=== PATIENT | male | born 1960 | race Caucasian/White ===

== ENCOUNTER 2024-06-07 19:01 | Emergency (ER) | payer OTHER ==
[~2024-06-07 19:01] MED LIST: Iopamidol-370 76% 500 ML MDV (1 ML CHARGE) ONE
[2024-06-07] MEDS ORDERED: Acetaminophen 500 MG TAB ONE (21:24)
[2024-06-07] MEDS ORDERED: methylPREDNISolone Sod Succ/PF 125 MG/2 ML VIAL ONE (21:24)
[2024-06-07 21:25] LABS: #Basophils 0.03 10x3/uL (0.0-0.2); %Basophils 0.4 % (0.0-1.0); %Eosinophils 1.2 % (0.0-10.0); %Lymphocytes 34.5 % (21.0-51.0); %Monocytes 7.7 % (0.0-10.0); %Neutrophils 56.1 % (42.0-75.0); Hematocrit 41.8 % (42.0-52.0); Mean Corpuscular HGB CONC 33.5 g/dL (32.0-36.0); Mean Corpuscular Hemoglobin 30.7 pg (27.0-31.0); Mean Corpuscular Volume 91.7 fL (78.0-98.0); Mean Platelet Volume 10.1 fL (7.4-10.4); Platelet Count 264 10x3/uL (130-400); RBC Distribution Width 13.2 % (11.5-14.5); Red Blood Cell (RBC) Count 4.56 mill/uL (4.70-6.10)
[2024-06-07 21:41] LABS: INR-International Normal Ratio 1.1; PTT 28.1 sec (22.9-36.1); Prothrombin Time 13.8 sec (12.0-14.7)
[2024-06-07 21:43] LABS: Lactic Acid 0.63 mmol/L (0.5-2.2)
[2024-06-07 21:48] LABS: ALT (SGPT) 12 U/L (8-55); AST (SGOT) 13 U/L (5-34); Albumin 3.6 g/dL (3.4-4.8); Alkaline Phosphatase 74 U/L (40-110); Anion Gap 12 mmol/L (10-20); BUN (Urea Nitrogen) 14 mg/dL (8.4-25.7); Bilirubin, Total 0.2 mg/dL (0.2-1.2); Calc. Creatinine Clearance 0 mL/min (70-130); Calcium 8.8 mg/dL (7.8-10.44); Carbon Dioxide 24 mmol/L (23-31); Chloride 109 mmol/L (98-107); Estimated GFR 81; Glucose 82 mg/dL (80-115); Lipase 26 U/L (8-78); Potassium 4.3 mmol/L (3.5-5.1); Protein, Total 6.6 g/dL (5.8-8.1); Sodium 141 mmol/L (136-145)
[2024-06-07 21:52] LABS: Troponin I 0.013 ng/mL (< 0.028)
[2024-06-07] MEDS ORDERED: fentaNYL 50 mcg/mL 1 mL Vial ONE ×2 (21:52→22:33)
[2024-06-07] MEDS ORDERED: Labetalol HCl 100 MG/20 ML VIAL ONE (21:52)
[2024-06-07] MEDS ORDERED: Esmolol 2,500 MG/250 ML 250 ML ONE (21:55)
[2024-06-07] MEDS ORDERED: Pantoprazole 40 MG VIAL ONE (21:58)
[2024-06-07] MEDS ORDERED: niCARdipine 25 MG/10 ML SDV ONE (22:09)
[2024-06-07] MEDS ORDERED: Pantoprazole 80 MG, Admixture Fee 1 EACH in Sodium Chloride 0.9% 100 ML IVPB SCH (22:30)
== END 2024-06-07 23:08 | disposition short-term general hospital (02) ==
LOC: ERS 19:01 → EDBD 19:01 → ERS 23:08
DX: I71.43 Infrarenal abdominal aortic aneurysm, without rupture (principal); R04.2 Hemoptysis; I16.9 Hypertensive crisis, unspecified; F17.200 Nicotine dependence, unspecified, uncomplicated; E78.5 Hyperlipidemia, unspecified; I10 Essential (primary) hypertension; F17.210 Nicotine dependence, cigarettes, uncomplicated; Z55.6 Problems related to health literacy
CPT/HCPCS: 71045; 71275; 74177; 80053; 83605; 83690; 83735; 83880; 84145; 84484; 85025; 85610; 85730; 86850; 86900; 86901; 87040; 93005; 96374; 96375; 99285; J2470; J2919; J3010; Q9967